=== PATIENT | female | born 1995 | race African-American/Black ===

== ENCOUNTER 2018-10-06 23:56 | Emergency (ER) | payer MEDICAID ==
[~2018-10-06] VITALS: Ht 165.1 cm; Wt 70.3 kg
--- NOTE | 2018-10-07 00:30 | NUR ---
PT BIB SELF. COMP OF HAVING "CHRONIC BACK PAIN FOR 6 MONTHS, RADIATING DOWN THE R LEG, +HEADACHE" NO SOB NOTED. NO ACUTE DISTRESS AT THIS TIME. AWAITING EVAL.
[2018-10-07 01:34] VITALS: BP 133/88
== END 2018-10-07 01:39 | disposition home or self-care (01) ==
LOC: ER 23:59
DX: M54.41 Lumbago with sciatica, right side (principal); G89.29 Other chronic pain; J45.909 Unspecified asthma, uncomplicated; F10.10 Alcohol abuse, uncomplicated; F17.200 Nicotine dependence, unspecified, uncomplicated; Y90.9 Presence of alcohol in blood, level not specified; Z98.890 Other specified postprocedural states